=== PATIENT | female | born 1990 | race Caucasian/White ===

== ENCOUNTER 2017-04-15 22:36 | Emergency (ER) | payer BC ==
[~2017-04-15] VITALS: Ht 165.1 cm; Wt 77.1 kg
[2017-04-15] MEDS ORDERED: MIDAZOLAM HCL 2 MG/2 ML VIAL IV ONE (23:15)
--- NOTE | 2017-04-15 23:25 | NUR ---
pt biba to room for anxiety s/p pot ingestion. Pt tearful sts " Im afraid i'm suri to , there was something more than pot in that cookie." Pt seen by MD. PANDA established, labs drawn and sent. Pt medicated for anxiety, will monitor for effects of medication. Pt resting in position of comfort for self.
--- NOTE | 2017-04-16 01:59 | NUR ---
Pt resting in position of comfort for self with eyes closed. Resp even and unlabored. No obvious signs of distress.
--- NOTE | 2017-04-16 04:00 | NUR ---
Pt resting in position of comfort. Resp even and unlabored. No obvious signs of distress at this time
--- NOTE | 2017-04-16 06:58 | NUR ---
Pt stable for discharge per MD. IV dc'd, catheter intact. Drsg applied. No problems noted to site. Pt given ACI. Pt verbalized understanding of dc instructions. 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
[2017-04-16 06:59] VITALS: BP 110/60
== END 2017-04-16 06:59 | disposition home or self-care (01) ==
LOC: ER 22:48
DX: F12.929 Cannabis use, unspecified with intoxication, unspecified (principal); F41.0 Panic disorder [episodic paroxysmal anxiety]
CPT/HCPCS: 36415; 84703; A4663; J2250